=== PATIENT | female | born 1975 | race Caucasian/White ===

== ENCOUNTER → 2016-09-16 | Outpatient (CLI) | payer BC ==
--- NOTE | 2016-09-16 16:28 | DIAGNOSTIC IMAGING REPORT ---
C-SPINE ROUTINE 4 OR 5 VIEWS CLINICAL HISTORY: Bilateral arm numbness. COMPARISON STUDY: No previous studies for comparison. FINDINGS: There is slight reversal of the normal cervical lordosis. Vertebral body heights are maintained. The inferior endplate of C7 is slightly obscured. There is no fracture or suspicious lesion. Disc spaces are preserved. There is minimal endplate osteophytosis. Facet joints are intact. IMPRESSION: 1. Minimal degenerative changes of the cervical spine. 2. No fracture or suspicious lesion. Electronically signed by: Hussain Garcia M.D. 09/16/2016 4:27 PM Dictated Date/Time: 09/16/2016 4:11 PM
== END | disposition home or self-care (01) ==
LOC: C.RAD 15:53
PROVIDERS: ATTEND Family Medicine
DX: R20.0 Anesthesia of skin (principal)

== ENCOUNTER 2017-06-12 07:09 | Inpatient (IN) | payer BC ==
[~2017-06-12] VITALS: Ht 167.6 cm; Wt 73.2 kg
[2017-06-12] MEDS ORDERED: ONDANSETRON INJ 2 MG/ML 2 ML VIAL IV STA ×2 (07:33→11:11)
[2017-06-12] MEDS ORDERED: MoRPHine SULFATE 4 MG/ML 1 ML CARP\\VIAL IV STA (07:33)
[2017-06-12] MEDS ORDERED: SODIUM CHLORIDE 0.9% 1000ML 1,000 ML IV STA (07:33)
[2017-06-12 08:03] LABS: BASO % 0.2 %; BASO ABS # 0.02 K/uL (0-0.2); COMPLETE YES; EOS % 0.4 %; HEMATOCRIT 33.8 % (37-47); IG% 0.3 %; LYMPH % 12.2 %; LYMPH ABS # 1.35 K/uL (1.2-3.4); MEAN CELL VOLUME 80.3 fL (80-100); MEAN CORPUSCULAR HEMOGLOBIN 26.4 pg (25-34); MEAN CORPUSCULAR HGB CONC 32.8 g/dl (32-36); MEAN PLATELET VOLUME 9.9 fL (7.4-10.4); MONO % 4.5 %; NEUT % 82.4 %; PLATELET COUNT 286 K/uL (130-400); RED BLOOD COUNT 4.21 M/uL (4.2-5.4); WHITE BLOOD COUNT 11.05 K/uL (4.8-10.8)
[2017-06-12 08:29] LABS: ALB/GLOB RATIO 1.2 (0.9-2); BUN/CREATININE RATIO 15.9 (10-20); CALCIUM 8.9 mg/dl (8.5-10.1); CREATININE 0.67 mg/dl (0.60-1.20); POTASSIUM 3.7 mmol/L (3.5-5.1)
[2017-06-12] MEDS ORDERED: HYDROmorphone INJ 0.5 MG/0.5 ML SYR IV STA (08:40)
--- NOTE | 2017-06-12 08:44 | DIAGNOSTIC IMAGING REPORT ---
ULTRASOUND KIDNEYS AND BLADDER CLINICAL HISTORY: Left ureteral stone. COMPARISON STUDY: No priors. TECHNIQUE: Real-time, grayscale, and color flow sonography of the kidneys and bladder is performed. Images are reviewed in the transverse and longitudinal planes. FINDINGS: Kidneys: The kidneys are normal in size and echotexture. The right kidney measures 12.9 cm in length and the left kidney measures 14.2 cm in length. There is moderate left hydroureteronephrosis. No hydronephrosis is seen on the right. An obstructing calculus is seen at the left vesicoureteral junction and measures 7 mm. No additional shadowing renal calculi are identified. There is no sonographic evidence of contour deforming renal mass lesion. There is trace left-sided perinephric fluid. Bladder: The bladder is partially decompressed and grossly normal in appearance. Ureteral jets were not seen. IMPRESSION: 1. There is a 7 mm obstructing calculus at the left vesicoureteral junction. This causes moderate left hydroureteronephrosis. 2. There is no right-sided hydronephrosis. Electronically signed by: Jay Ordonez M.D. 06/12/2017 8:43 AM Dictated Date/Time: 06/12/2017 8:41 AM
[2017-06-12 09:08] LABS: URINE APPEARANCE CLOUDY (CLEAR); URINE BILIRUBIN NEG (NEG); URINE COLOR YELLOW; URINE NITRITE NEG (NEG); UROBILINOGEN NEG (NEG)
[2017-06-12 09:09] LABS: MANUAL MICROSCOPIC REQUIRED? NO; REVIEW REQ? NO
[2017-06-12] MEDS ORDERED: ONDA4TAB46 PO (09:18)
[2017-06-12] MEDS ORDERED: HYDR-5688 PO (09:18)
[2017-06-12] MEDS ORDERED: TAMS0.4C38 PO (09:18)
[2017-06-12] MEDS ORDERED: HYDROmorphone INJ 0.5 MG/0.5 ML SYR IV PRN ×2 (10:45→11:45)
[2017-06-12] MEDS ORDERED: NIFEdipine 30 MG CR TAB PO STA (11:36)
[2017-06-12] MEDS ORDERED: ONDANSETRON INJ 2 MG/ML 2 ML VIAL IV PRN (11:45)
[2017-06-12 12:16] VITALS: BP 162/102; PULSE 70; TEMP 36.8; O2SAT 97; Ht 167.6 cm; Wt 73.2 kg
--- NOTE | 2017-06-12 12:29 | History and Physical ---
History & Physical Date & Time of Service: Jun 12, 2017 at 12:29 Chief Complaint: Kidney Stone Primary Care Physician: Suzette Townsend D.O. History of Present Illness 41 yo female who comes into the hospital for left sided flank pain over the past week. Was recently seen at [facility] and was found to have a kidney stone in the ureter. Patient was given flomax HS and pain medicine and was sent home. She returns today because she was again awoken at 300 with severe left sided flank pain, accompanied by nausea. Patient denies any fever and chills. This is first episode of kidney stones Family History FH: cancer FH: diabetes mellitus FH: gallbladder disease FH: heart disease FH: hypertension FH: kidney disease strong family history of kidney stones. Social History Smoking Status: Never Smoker Immunizations History of Influenza Vaccine: N/A History of Tetanus Vaccine?: Yes Tetanus Immunization Date: Nov 13, 2008 History of Pneumococcal: No History of Hepatitis B Vaccine: No Multi-Drug Resistant Organisms History of MDRO: No Allergies Coded Allergies: No Known Allergies (Verified , ?, 06/12/17) Home Medications Scheduled Tamsulosin Hcl (Flomax), 0.4 MG PO HS Scheduled PRN Hydrocodone/Acetaminophen 5MG/325MG ([place] 5MG/325MG), 1 TABLET PO Q4 PRN for Pain Ondansetron Hcl (Zofran), 4 MG PO Q4 PRN for Nausea Review of Systems Constitutional: No fever, No chills Respiratory: No cough, No sputum Cardiovascular: No chest pain, No orthopnea Abdomen: No pain, No nausea Neurologic: No memory loss, No paralysis Endocrine: No fatigue, No excessive thirst Integumentary: No rash, No itch Allergic / Immunologic: No environmental allergies Physical Exam Vital Signs Date Time Temp Pulse Resp B/P (MAP) Pulse Ox O2 Delivery O2 Flow Rate FiO2 06/12/17 11:24 90 20 160/88 98 Room Air 06/12/17 08:47 87 20 161/97 99 Room Air 06/12/17 08:09 98 Room Air 06/12/17 08:04 78 20 144/85 98 Room Air 06/12/17 07:12 36.6 84 18 159/91 99 Room Air General Appearance: WD/WN, no apparent distress Neck: supple, no adenopathy Respiratory/Chest: chest non-tender, lungs clear, normal breath sounds Cardiovascular: regular rate, rhythm, no edema Abdomen/GI: normal bowel sounds, non tender, soft Back: normal inspection, + left CVA tenderness 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 Skin: normal color Lymphatic: no adenopathy Diagnostics Laboratory Results Results Past 24 Hours Test 06/12/17 07:48 06/12/17 08:42 Range/Units White Blood Count 11.05 4.8-10.8 K/uL Red Blood Count 4.21 4.2-5.4 M/uL Hemoglobin 11.1 12.0-16.0 g/dL Hematocrit 33.8 37-47 % Mean Corpuscular Volume 80.3 80-100 fL Mean Corpuscular Hemoglobin 26.4 25-34 pg Mean Corpuscular Hemoglobin Concent 32.8 32-36 g/dl Platelet Count 286 130-400 K/uL Mean Platelet Volume 9.9 7.4-10.4 fL Neutrophils (%) (Auto) 82.4 % Lymphocytes (%) (Auto) 12.2 % Monocytes (%) (Auto) 4.5 % Eosinophils (%) (Auto) 0.4 % Basophils (%) (Auto) 0.2 % Neutrophils # (Auto) 9.11 1.4-6.5 K/uL Lymphocytes # (Auto) 1.35 1.2-3.4 K/uL Monocytes # (Auto) 0.50 0.11-0.59 K/uL Eosinophils # (Auto) 0.04 0-0.5 K/uL Basophils # (Auto) 0.02 0-0.2 K/uL RDW Standard Deviation 39.5 36.4-46.3 fL RDW Coefficient of Variation 13.5 11.5-14.5 % Immature Granulocyte % (Auto) 0.3 % Immature Granulocyte # (Auto) 0.03 0.00-0.02 K/uL Sodium Level 137 136-145 mmol/L Potassium Level 3.7 3.5-5.1 mmol/L Chloride Level 104 98-107 mmol/L Carbon Dioxide Level 24 21-32 mmol/L Anion Gap 9.0 3-11 mmol/L Blood Urea Nitrogen 11 7-18 mg/dl Creatinine 0.67 0.60-1.20 mg/dl Est Creatinine Clear Calc Drug Dose 110.8 ml/min Estimated GFR () 124.8 Estimated GFR (Non- 107.7 BUN/Creatinine Ratio 15.9 10-20 Random Glucose 108 70-99 mg/dl Calcium Level 8.9 8.5-10.1 mg/dl Total Bilirubin 0.4 0.2-1 mg/dl Aspartate Amino Transf (AST/SGOT) 19 15-37 U/L Alanine Aminotransferase (ALT/SGPT) 19 12-78 U/L Alkaline Phosphatase 76 45-117 U/L Total Protein 7.6 6.4-8.2 gm/dl Albumin 4.2 3.4-5.0 gm/dl Globulin 3.4 2.5-4.0 gm/dl Albumin/Globulin Ratio 1.2 0.9-2 Lipase 127 73-393 U/L Chemistry Specimen Hemolysis Urine Color YELLOW Urine Appearance CLOUDY CLEAR Urine pH 7.0 4.5-7.5 Urine Specific [place] 1.020 1.000-1.030 Urine Protein NEG NEG Urine Glucose (UA) NEG NEG Urine Ketones 1+ NEG Urine Occult Blood NEG NEG Urine Nitrite NEG NEG Urine Bilirubin NEG NEG Urine Urobilinogen NEG NEG Urine Leukocyte Esterase NEG NEG Urine WBC (Auto) 0 0-5 /hpf Urine RBC (Auto) 0-4 0-4 /hpf Urine Hyaline Casts (Auto) 1-5 0-5 /lpf Urine Epithelial Cells (Auto) 10-20 0-5 /lpf Urine Bacteria (Auto) NEG NEG Diagnostic Radiology ULTRASOUND KIDNEYS AND BLADDER CLINICAL HISTORY: Left ureteral stone. COMPARISON STUDY: No priors. TECHNIQUE: Real-time, grayscale, and color flow sonography of the kidneys and bladder is performed. Images are reviewed in the transverse and longitudinal planes. FINDINGS: Kidneys: The kidneys are normal in size and echotexture. The right kidney measures 12.9 cm in length and the left kidney measures 14.2 cm in length. There is moderate left hydroureteronephrosis. No hydronephrosis is seen on the right. An obstructing calculus is seen at the left vesicoureteral junction and measures 7 mm. No additional shadowing renal calculi are identified. There is no sonographic evidence of contour deforming renal mass lesion. There is trace left-sided perinephric fluid. Bladder: The bladder is partially decompressed and grossly normal in appearance. Ureteral jets were not seen. IMPRESSION: 1. There is a 7 mm obstructing calculus at the left vesicoureteral junction. This causes moderate left hydroureteronephrosis. 2. There is no right-sided hydronephrosis. Electronically signed by: Jay Ordonez M.D. 06/12/2017 8:43 AM Dictated Date/Time: 06/12/2017 8:41 AM Impression Assessment and Plan Left sided ureterovesical 7mm obstructing stone with hydronephrosis of left kidney Admit to surg Discussed with patient that will add nifedipine to her regimen to help dilate ureter. Will place patient NPO as patient will likely require a stent Hoping for stent placement today for a quick turnaround and discharge. This is dependent on time Urology sees patient will continue with dilaudid for pain control. Level of Care Med/Surg Advanced Directives Existing Advance Directive: No Existing Living Will: No Existing Power of [employer] Administrator: No Existing Health Care Proxy: No Resuscitation Status FULL RESUSCITATION VTE Prophylaxis VTE Risk Assessment Done? Y/N: Yes Risk Level: Low Given or contraindicated: Shyann Moore, SCD's Social Service Consult Lives in Personal Care
[2017-06-12 12:32] VITALS: BP 162/102; PULSE 70; TEMP 36.8; O2SAT 97
[2017-06-12] MEDS: SODIUM CHLORIDE 0.9% 1000ML 1,000 ML IV SCH ×2 (12:36→18:27)
[2017-06-12] MEDS ORDERED: HYDROmorphone INJ 1 MG/ML SYR ONE (13:25)
[2017-06-12] MEDS ORDERED: NURSING VERBAL MED ORDER ONE (13:30)
[2017-06-12] MEDS ORDERED: HYDROmorphone INJ 1 MG/ML SYR IV PRN (13:45)
[2017-06-12 13:50] VITALS: BP 130/81; PULSE 70
[2017-06-12 15:20] VITALS: BP 153/90; PULSE 67; TEMP 36.7; O2SAT 97
--- NOTE | 2017-06-12 17:05 | EMERGENCY ROOM VISIT NOTE ---
History First contact with patient: 07:15 Chief Complaint: KIDNEY STONE Stated Complaint: KIDNEY STONE History of Present Illness The patient is a 41 year old female who presents to the Emergency Room with complaints of recurrent left flank/lower back pain after developing renal colic secondary to a kidney stone 6 days ago. The patient was seen at [facility] where a CT scan confirmed a stone. She was provided prescriptions for Flomax, [place] and Zofran. The patient reports that most of the pain stopped within 18- 24 hours, and has had no further discomfort until 3 AM this morning. The patient took her Flomax at 11 PM last night, [place] at 3 AM and Zofran at 5:30 AM. She currently denies any significant nausea, and rates her discomfort a 5 out of 10. The patient denies any prior history of kidney stones. She has otherwise been urinating fine this past week. She denies fevers or chills. Review of Systems HEENT: Denies dizziness, visual problems, hearing loss, tinnitus. Denies difficulty swallowing or oral lesions. PULMONARY: Denies cough, shortness of breath, sputum production or hemoptysis. CARDIOVASCULAR: Denies chest pain, palpitations, dyspnea on exertion, orthopnea or peripheral edema. GASTROINTESTINAL: Denies diarrhea, constipation or nausea, otherwise see history of present illness. GENITOURINARY: Denies dysuria, frequency, urgency or nocturia. Otherwise see history of present illness. NEUROLOGIC: Denies history of epilepsy, CVA, TIA or chronic headaches. MUSCULOSKELETAL: Denies history of joint tenderness/swelling. SKIN: Denies rashes or lesions. PSYCHIATRIC: Denies history of depression or mental illness. ENDOCRINE: Denies history of diabetes or thyroid disorders. Past Medical/Surgical History Medical Problems: (1) Hydronephrosis of left kidney (2) Hypertension, essential (3) Left ureteral stone Surgical Problems: (1) History of delivery (2) History of cholecystectomy Family History FH: cancer FH: diabetes mellitus FH: gallbladder disease FH: heart disease FH: hypertension FH: kidney disease Social History Smoking Status: Never Smoker Alcohol Use: none Marital Status: Housing Status: lives with family Occupation Status: employed Current/Historical Medications Scheduled Tamsulosin Hcl (Flomax), 0.4 MG PO HS Scheduled PRN Hydrocodone/Acetaminophen 5MG/325MG ([place] 5MG/325MG), 1 TABLET PO Q4 PRN for Pain Ondansetron Hcl (Zofran), 4 MG PO Q4 PRN for Nausea Physical Exam Vital Signs Date Time Temp Pulse Resp B/P (MAP) Pulse Ox O2 Delivery O2 Flow Rate FiO2 06/12/17 11:24 90 20 160/88 98 Room Air 06/12/17 08:47 87 20 161/97 99 Room Air 06/12/17 08:09 98 Room Air 06/12/17 08:04 78 20 144/85 98 Room Air 06/12/17 07:12 36.6 84 18 159/91 99 Room Air Physical Exam CONSTITUTIONAL: Healthy and well nourished. Alert and oriented X 3 with positive affect. Patient does not appear in any acute distress. HEENT: Normocephalic, atraumatic. Pupils equal, round and reactive. NECK: Full active range of motion without discomfort. RESPIRATORY: Clear to auscultation bilaterally with no wheezing, crackles, rhonchi or stridor. CARDIOVASCULAR: Regular rate and rhythm with no murmurs, rubs or gallops. GASTROINTESTINAL: Bowel sounds present in all quadrants. Abdomen is soft and nontender to palpation. Negative CVA tenderness. MUSCULOSKELETAL: Full range of motion of all joints without discomfort. INTEGUMENTARY: No rash or other significant dermatologic conditions noted. HEMATOLOGIC: No ecchymosis or petechiae noted. NEUROLOGIC: No focal neurologic deficits noted. Medical Decision & Procedures ER Provider Diagnostic Interpretation: Retroperitoneal ultrasound shows a following: ULTRASOUND KIDNEYS AND BLADDER CLINICAL HISTORY: Left ureteral stone. COMPARISON STUDY: No priors. TECHNIQUE: Real-time, grayscale, and color flow sonography of the kidneys and bladder is performed. Images are reviewed in the transverse and longitudinal planes. FINDINGS: Kidneys: The kidneys are normal in size and echotexture. The right kidney measures 12.9 cm in length and the left kidney measures 14.2 cm in length. There is moderate left hydroureteronephrosis. No hydronephrosis is seen on the right. An obstructing calculus is seen at the left vesicoureteral junction and measures 7 mm. No additional shadowing renal calculi are identified. There is no sonographic evidence of contour deforming renal mass lesion. There is trace left-sided perinephric fluid. Bladder: The bladder is partially decompressed and grossly normal in appearance. Ureteral jets were not seen. IMPRESSION: 1. There is a 7 mm obstructing calculus at the left vesicoureteral junction. This causes moderate left hydroureteronephrosis. 2. There is no right-sided hydronephrosis. Laboratory Results 06/12/17 07:48 Red Blood Count 4.21, Mean Corpuscular Volume 80.3, Mean Corpuscular Hemoglobin 26.4, Mean Corpuscular Hemoglobin Concent 32.8, Mean Platelet Volume 9.9, Neutrophils (%) (Auto) 82.4, Lymphocytes (%) (Auto) 12.2, Monocytes (%) (Auto) 4.5, Eosinophils (%) (Auto) 0.4, Basophils (%) (Auto) 0.2, Neutrophils # (Auto) 9.11, Lymphocytes # (Auto) 1.35, Monocytes # (Auto) 0.50, Eosinophils # (Auto) 0.04, Basophils # (Auto) 0.02 06/12/17 07:48 Test 06/12/17 07:48 06/12/17 08:42 White Blood Count 11.05 K/uL (4.8-10.8) Red Blood Count 4.21 M/uL (4.2-5.4) Hemoglobin 11.1 g/dL (12.0-16.0) Hematocrit 33.8 % (37-47) Mean Corpuscular Volume 80.3 fL (80-100) Mean Corpuscular Hemoglobin 26.4 pg (25-34) Mean Corpuscular Hemoglobin Concent 32.8 g/dl (32-36) Platelet Count 286 K/uL (130-400) Mean Platelet Volume 9.9 fL (7.4-10.4) Neutrophils (%) (Auto) 82.4 % Lymphocytes (%) (Auto) 12.2 % Monocytes (%) (Auto) 4.5 % Eosinophils (%) (Auto) 0.4 % Basophils (%) (Auto) 0.2 % Neutrophils # (Auto) 9.11 K/uL (1.4-6.5) Lymphocytes # (Auto) 1.35 K/uL (1.2-3.4) Monocytes # (Auto) 0.50 K/uL (0.11-0.59) Eosinophils # (Auto) 0.04 K/uL (0-0.5) Basophils # (Auto) 0.02 K/uL (0-0.2) RDW Standard Deviation 39.5 fL (36.4-46.3) RDW Coefficient of Variation 13.5 % (11.5-14.5) Immature Granulocyte % (Auto) 0.3 % Immature Granulocyte # (Auto) 0.03 K/uL (0.00-0.02) Anion Gap 9.0 mmol/L (3-11) Est Creatinine Clear Calc Drug Dose 110.8 ml/min Estimated GFR () 124.8 Estimated GFR (Non- 107.7 BUN/Creatinine Ratio 15.9 (10-20) Calcium Level 8.9 mg/dl (8.5-10.1) Total Bilirubin 0.4 mg/dl (0.2-1) Aspartate Amino Transf (AST/SGOT) 19 U/L (15-37) Alanine Aminotransferase (ALT/SGPT) 19 U/L (12-78) Alkaline Phosphatase 76 U/L (45-117) Total Protein 7.6 gm/dl (6.4-8.2) Albumin 4.2 gm/dl (3.4-5.0) Globulin 3.4 gm/dl (2.5-4.0) Albumin/Globulin Ratio 1.2 (0.9-2) Lipase 127 U/L (73-393) Chemistry Specimen Hemolysis Urine Color YELLOW Urine Appearance CLOUDY (CLEAR) Urine pH 7.0 (4.5-7.5) Urine Specific [place] 1.020 (1.000-1.030) Urine Protein NEG (NEG) Urine Glucose (UA) NEG (NEG) Urine Ketones 1+ (NEG) Urine Occult Blood NEG (NEG) Urine Nitrite NEG (NEG) Urine Bilirubin NEG (NEG) Urine Urobilinogen NEG (NEG) Urine Leukocyte Esterase NEG (NEG) Urine WBC (Auto) 0 /hpf (0-5) Urine RBC (Auto) 0-4 /hpf (0-4) Urine Hyaline Casts (Auto) 1-5 /lpf (0-5) Urine Epithelial Cells (Auto) 10-20 /lpf (0-5) Urine Bacteria (Auto) NEG (NEG) The above labs were reviewed. The patient does have a moderate leukocytosis with left shift and bandemia. Hemoglobin is 11.1. Electrolytes and renal function are otherwise normal. Urinalysis does not show any evidence of infection. Medications Administered Medications (Trade) Dose Ordered Sig/[place] Route Start Time Stop Time Status Last Admin Dose Admin Sodium Chloride 1,000 ml @ 999 mls/hr Q1H1M STAT IV 06/12/17 07:33 06/12/17 08:33 DC 06/12/17 08:06 999 MLS/HR Morphine Sulfate (MoRPHine SULFATE INJ) 4 mg NOW STAT IV 06/12/17 07:33 06/12/17 07:36 DC 06/12/17 08:06 4 MG Ondansetron HCl (Zofran Inj) 4 mg NOW STAT IV 06/12/17 07:33 06/12/17 07:36 DC 06/12/17 08:06 4 MG Hydromorphone HCl (Dilaudid Inj) 0.5 mg NOW STAT IV 06/12/17 08:40 06/12/17 08:42 DC 06/12/17 08:48 0.5 MG Hydromorphone HCl (Dilaudid Inj) 0.5 mg Q1H PRN IV 06/12/17 10:45 06/12/17 12:32 DC 06/12/17 11:27 0.5 MG Ondansetron HCl (Zofran Inj) 4 mg NOW STAT IV 06/12/17 11:11 06/12/17 11:12 DC 06/12/17 11:25 4 MG Procedure 1. IV hydration: The patient was administered a normal saline 1 L bolus 2. IV medications: The patient was initially administered morphine 4 mg and Zofran 4 mg IVP. She required 2 additional and separate doses of Dilaudid 0.5 mg IVP, and additional dose of Zofran 4 mg IVP for persistent pain and nausea. ED Course Patient history and physical exam were performed. Nurse's notes were reviewed. I also reviewed documentation the patient brought with her from her last ED evaluation for her stone. Her CT scan showed a mild to moderate left sided hydroureteronephrosis secondary to a 5 x 3 mm stone of the left UVJ. A 2.5 cm ovoid shaped low density structure is also seen within the region of the left adnexa, felt to represent an ovarian cyst. Her urinalysis did not show any signs of infection. Potassium was 3.2 with a hemoglobin of 10.7, otherwise remaining labs, including LFTs were normal. Vital signs were reviewed, showing an elevated blood pressure of 159/91. The patient is afebrile. IV access was established, and labs were drawn. The patient was hydrated with normal saline, and received IV medications as discussed in the previous Procedure section. Review of labs shows a mild leukocytosis with left shift and bandemia. Renal function is normal, as well as urinalysis. Retroperitoneal ultrasound shows a persistent left UVJ stone measured at 7 mm. A moderate hydroureteronephrosis is also noted. The case was further discussed with Dr. Ash, ED attending physician, who suggested urology referral. I discussed the case with Dr. Kay who reported that he may not be able to perform surgical intervention until later this afternoon. He agrees that surgery is indicated, and requested that the hospitalist service managed the patient until surgical intervention can be planned. The case was discussed further with [facility]. Please see their dictation for further treatment and final disposition. The patient will be placed in nothing by mouth status. She has not had anything to eat or drink this morning. Medical Decision Patient presents with a left UVJ stone measuring 7 mm, and not having passed within the past 6 days. The patient does not have any laboratory evidence for acute kidney injury or failure. She does have a mild leukocytosis, but urinalysis findings that are not consistent with infection. I do not any additional intra-abdominal etiology such as diverticulitis, bowel obstruction, volvulus, peritonitis, appendicitis, pneumonia, ischemic colitis, mesenteric adenitis or ischemic gut. [place] Drug Monitoring Program Search Results: patient reviewed within database, no issues identified Medication Reconcilliation Current Medication List: was personally reviewed by ak Blood Pressure Screening Patient's blood pressure: Normal blood pressure Impression Primary Impression: Left ureteral stone Additional Impression: Hydronephrosis of left kidney Departure Information Referrals Suzette Townsend D.O. (PCP) Patient Instructions My [facility] Problem Qualifiers
--- NOTE | 2017-06-12 18:09 | Urology Consultation ---
History General Date of Service: Jun 12, 2017. Primary Care Physician: Suzette Townsend D.O. Pt seen a urologist before?: No History of Present Illness 41 year old female who presents to the Emergency Room with complaints of recurrent left flank/lower back pain after developing renal colic secondary to a kidney stone last week. The patient was seen at [facility] where a CT scan confirmed a stone. She was sent home with trial of passage. The patient reports that most of the pain stopped within 18-24 hours, and has had no further discomfort until 3 AM this morning. She currently denies any significant nausea, and rates her discomfort a 5 out of 10. She does not feel like she has passed the stone yet. She has not had a kidney stone prior to this. She normally voids w/o complaint. Min urge and freq. No hem. No dys. No nausea or vomitting today. She does have a strong family hx of stones. Imaging Imaging: Ultrasound Laboratory Labs were reviewed and are within normal limits unless listed below. Labs are available in the chart and at [facility] Past History no pertinent history Past Surgical History: no surgical history Family History FH: cancer FH: diabetes mellitus FH: gallbladder disease FH: heart disease FH: hypertension FH: kidney disease Social History Hx Tobacco Use In Past Year?: No Marital status: Occupation status: employed Immunizations History of Influenza Vaccine: N/A History of Tetanus Vaccine?: Yes Tetanus Immunization Date: Nov 13, 2008 History of Pneumococcal: No History of Hepatitis B Vaccine: No History of MDRO No Allergies Coded Allergies: No Known Allergies (Verified , ?, 06/12/17) Medications Home Medications: Home Meds and Scripts Medications Dose Route/Sig Max Daily Dose Days Date Category Dose Instructions Zofran (Ondansetron HCl) 4 Mg Tab 4 Mg PO Q4 PRN 06/12/17 Reported [place] 5MG/325MG (Acetaminophen/Hydrocodone Bitart) Tab 1 Tablet PO Q4 PRN 06/12/17 Reported PRN PAIN Flomax (Tamsulosin Hcl) 0.4 Mg Cap 0.4 Mg PO HS 06/12/17 Reported Inpatient Medications: Current Inpatient Medications Medications (Trade) Dose Ordered Sig/[place] Route Start Time Stop Time Status Last Admin Dose Admin Ondansetron HCl (Zofran Inj) 4 mg Q4H PRN IV 06/12/17 11:45 07/12/17 11:44 06/12/17 15:29 4 MG Sodium Chloride 1,000 ml @ 150 mls/hr Q6H40M IV 06/12/17 11:45 07/12/17 11:44 06/12/17 12:36 150 MLS/HR Tamsulosin HCl (Flomax Cap) 0.4 mg HS PO 06/12/17 21:00 07/12/17 20:59 Hydromorphone HCl (Dilaudid Inj) 1 mg Q4H PRN IV 06/12/17 13:45 06/26/17 13:44 Review of Systems Review of Systems Constitutional: + see HPI, No fever, No chills Eyes: + see HPI, No blurred vision Neurological: No dizzy Endocrine: No excessive thirst Gastrointestinal: + abdominal pain Cardiovascular: No heart murmur Respiratory: No shortness of breath Skin: No rash Musculoskeletal: No joint pain Blood / Lymphatic: No bleed easily Ears / Nose / Throat: No hearing loss Psychologic / Mental: No nervous Female : + kidney stones All Other Systems: Reviewed and Negative Physical Exam Vital Signs: Vital Signs Past 12 Hours Date Time Temp Pulse Resp B/P (MAP) Pulse Ox O2 Delivery O2 Flow Rate FiO2 06/12/17 15:30 Room Air 06/12/17 15:20 36.7 67 16 153/90 (111) 97 Room Air 06/12/17 13:50 70 18 130/81 (97) 06/12/17 13:21 Room Air 06/12/17 12:32 36.8 70 16 162/102 (122) 97 Room Air 06/12/17 12:16 36.8 70 16 162/102 97 Room Air 06/12/17 11:24 90 20 160/88 98 Room Air 06/12/17 08:47 87 20 161/97 99 Room Air 06/12/17 08:09 98 Room Air 06/12/17 08:04 78 20 144/85 98 Room Air 06/12/17 07:12 36.6 84 18 159/91 99 Room Air Physical Exam: General Appearance: WD/WN, no apparent distress ENT: normal ENT inspection, hearing grossly normal Neck: supple, no adenopathy Respiratory/Chest: chest non-tender, lungs clear Cardiovascular: regular rate, rhythm, no edema Extremities: normal range of motion 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 7mm in size. Hydronephrosis. Pt has bounced back to ER and is frustrated. She is not interested in continuing to try to pass the stone. Will plan to take to OR for cystoscopy, Usocpe, Laser Litho, and Stent. Reviewed procedure and risks. Will plan to remove stone and leave stent with long strings for patient to remove herself in 5 days.
[2017-06-12] MEDS ORDERED: TAMSULOSIN HCL 0.4 MG CAP PO SCH (21:00)
[2017-06-12 23:07] VITALS: BP 132/86; PULSE 68; TEMP 36.7; O2SAT 99
[2017-06-13] VITALS (7 sets, daily range): BP systolic 120–133; BP diastolic 73–80; PULSE 76–82; TEMP 36.4–36.7; O2SAT 94–98
[2017-06-13] MEDS: SODIUM CHLORIDE 0.9% 1000ML 1,000 ML IV SCH ×3 (01:00→14:24)
[2017-06-13 07:28] LABS: BASO % 0.2 %; BASO ABS # 0.01 K/uL (0-0.2); COMPLETE YES; EOS % 1.8 %; HEMATOCRIT 30.1 % (37-47); IG% 0.2 %; LYMPH % 31.7 %; LYMPH ABS # 1.92 K/uL (1.2-3.4); MEAN CELL VOLUME 80.7 fL (80-100); MEAN CORPUSCULAR HEMOGLOBIN 25.2 pg (25-34); MEAN CORPUSCULAR HGB CONC 31.2 g/dl (32-36); MEAN PLATELET VOLUME 9.2 fL (7.4-10.4); MONO % 10.9 %; NEUT % 55.2 %; PLATELET COUNT 258 K/uL (130-400); RED BLOOD COUNT 3.73 M/uL (4.2-5.4); WHITE BLOOD COUNT 6.05 K/uL (4.8-10.8)
[2017-06-13] MEDS ORDERED: CONRAY 30% 150ML BOTTLE ONE (07:41)
[2017-06-13] MEDS ORDERED: ONDANSETRON INJ 2 MG/ML 2 ML VIAL IV PRN (07:45)
[2017-06-13] MEDS ORDERED: EpHEDrine SULFATE INJ 50 MG/ML AMP IV PRN (07:45)
[2017-06-13] MEDS ORDERED: ATROPINE SULFATE 0.1 MG/ML 5ML SYR IV PRN (07:45)
[2017-06-13] MEDS ORDERED: FENTANYL CITRATE INJ 50 MCG/1 ML 2 ML VIAL IV PRN (07:45)
[2017-06-13] MEDS ORDERED: DEXAMETHASONE SOD INJ 4 MG/ML VIAL ONE (07:51)
[2017-06-13] MEDS ORDERED: PROPOFOL IV EMULSION 10 MG/ML 20 ML VIAL IV ONE (07:51)
[2017-06-13] MEDS ORDERED: MIDAZOLAM HCL 1 MG/ML 2ML VIAL ONE (07:51)
[2017-06-13] MEDS ORDERED: ONDANSETRON INJ 2 MG/ML 2 ML VIAL ONE (07:51)
[2017-06-13] MEDS ORDERED: FENTANYL CITRATE INJ 50 MCG/1 ML 2 ML VIAL ONE (07:51)
[2017-06-13] MEDS ORDERED: LIDOCAINE HCL 2% 2 ML VIAL (20MG/ML) ONE (07:51)
[2017-06-13 07:53] LABS: BUN/CREATININE RATIO 12.8 (10-20); CALCIUM 8.1 mg/dl (8.5-10.1); CREATININE 0.6 mg/dl (0.60-1.20); POTASSIUM 3.5 mmol/L (3.5-5.1)
[2017-06-13 08:00] LABS: PREG INTERNAL NEGATIVE QC NEG CLEAR BACKGROUND; PREG INTERNAL POSITIVE QC POS CONTROL LINE
[2017-06-13] MEDS ORDERED: CIPROFLOXACIN 400MG / 200ML D5W ONE (08:38)
--- NOTE | 2017-06-13 08:38 | History & Physical Bridge Note ---
H&P Re-Evaluation Bridge Note: I have examined the patient, reviewed the History & Physical and in the interval since the performance of the History & Physical I have noted the following changes of clinical significance: No changes noted
[2017-06-13] MEDS ORDERED: SODIUM CHLORIDE 0.9% INJ 10 ML VIAL ONE (09:05)
[2017-06-13] MEDS ORDERED: EpHEDrine SULFATE INJ 50 MG/ML AMP ONE (09:05)
[2017-06-13] MEDS ORDERED: PHENYLEPHRINE HCL INJ 10 MG/ML VIAL ONE (09:05)
--- NOTE | 2017-06-13 09:22 | OPERATIVE REPORT ---
DATE OF OPERATION: 06/13/2017 SURGEON: Morro Kay MD. PREOPERATIVE DIAGNOSIS: Left ureteral calculus. POSTOPERATIVE DIAGNOSIS: Same. PROCEDURES: Cystoscopy, left retrograde pyelogram, left ureteroscopy, basket extraction of stone, left ureteral stent placement. ANESTHESIA: General endotracheal. COMPLICATIONS: None. SPECIMENS: Ureteral stone. DRAINS: A 6 Frisian x 26 cm ureteral stent with long strings. ESTIMATED BLOOD LOSS: Minimal. FINDINGS: 5 mm jagged ureteral stone in left ureter. INDICATIONS: Ms. Wilson is a 41-year-old female who presented last week with left-sided flank pain. This persisted and she now presents for definitive treatment of the stone. DESCRIPTION OF PROCEDURE: The patient brought to the operative suite, positively identified, placed on the table in the supine position. After induction of general anesthesia, placed in dorsal lithotomy position. The genitalia prepped and draped in a sterile fashion. Preoperative antibiotics were administered and time out was performed. A rigid cystoscope was passed through the urethra into the bladder. The urethra was normal. The bladder was unremarkable. Attention was turned to the left ureteral orifice. This was intubated with an open ended catheter and retrograde pyelogram was performed. This showed a filling defect in the distal ureter consistent with the stone seen on the previous imaging studies. Sensor wire was passed up to level of the renal pelvis and a second wire was passed alongside this wire and the rigid ureteroscope was passed up the left ureter. The stone was encountered in the distal ureter. It was approximately 5 mm and jagged in appearance and triangular in shape. I suspected that it would be able to come out with simple basket extraction. An NGage basket was used to entrap the stone and remove it completely without difficulty. The stone was sent for analysis. A final retrograde pyelogram did not show any other abnormalities. A 6-Frisian x 26 cm ureteral stent was then placed with a good curl seen proximally and distally. The bladder was then drained. The strings were taped to the lower abdomen for the patient to remove herself in approximately 5 days. The patient tolerated the procedure well. Sponge and needle count was correct. Taken to PACU in stable condition. I attest to the content of the Intraoperative Record and any orders documented therein. Any exception s are noted below.
--- NOTE | 2017-06-13 09:33 | DIAGNOSTIC IMAGING REPORT ---
RETROGRADE INCLUDES KUB CLINICAL HISTORY: 41 years-old Female presenting with CYSTO. TECHNIQUE: 3 fluoroscopic spot image(s) obtained as part of an intraoperative procedure. COMPARISON: Renal ultrasound performed the previous day. FINDINGS/IMPRESSION: A guidewire has been passed into the left renal collecting system. Contrast opacifies the mid to distal left ureter. A left ureteral double-J stent was placed. Please see surgical report for further details. Fluoroscopy dosage (mGy): Not available. Fluoroscopy time: 8 seconds. Number of fluoroscopic spot images: 3. Electronically signed by: Gilberto De Los Santos M.D. 06/13/2017 9:31 AM Dictated Date/Time: 06/13/2017 9:30 AM
--- NOTE | 2017-06-13 10:20 | Anesthesiology Progress Note ---
Anesthesia Post Op Note Date & Time Jun 13, 2017 at 10:20 Vital Signs Pain Intensity: 0 Vital Signs Past 12 Hours Date Time Temp Pulse Resp B/P (MAP) Pulse Ox O2 Delivery O2 Flow Rate FiO2 06/13/17 10:10 36.3 71 16 120/78 95 Room Air 06/13/17 09:50 84 16 136/79 96 Room Air 06/13/17 09:40 85 17 132/78 99 Nasal Cannula 5 06/13/17 09:30 83 16 125/72 99 Nasal Cannula 5 06/13/17 09:22 36.3 90 16 116/64 99 Nasal Cannula 5 06/13/17 07:15 Room Air 06/13/17 05:50 36.7 80 16 123/73 (90) 98 Room Air 06/13/17 00:05 Room Air 06/12/17 23:07 36.7 68 16 132/86 (101) 99 Room Air Notes Mental Status: alert / awake / arousable, participated in evaluation Pt Amnestic to Procedure: Yes Nausea / Vomiting: adequately controlled Pain: adequately controlled Airway Patency, RR, SpO2: stable & adequate BP & HR: stable & adequate Hydration State: stable & adequate Anesthetic Complications: no major complications apparent
[2017-06-13] MEDS ORDERED: HYDR-5688 PO (13:42)
--- NOTE | 2017-06-13 13:45 | Discharge Instructions ---
Discharge Instructions Date of Service Jun 13, 2017. Admission Reason for Admission: Kidney Stone Discharge Discharge Diagnosis / Problem: Left ureteral stone s/p stent Discharge Goals Goal(s): Decrease discomfort, Improve function, Improve disease control, Diagnostic testing, Prevent Disease Progression Activity Recommendations Activity Limitations: as noted below Lifting Limitations: gradually increase as tolerated Exercise/Sports Limitations: rest today May Resume Sexual Activity: when tolerated Shower/Bathe: no limitations Driving or Machine Use: resume 1 day after discharge . Current Hospital Diet Patient's current hospital diet: Regular Diet Discharge Diet Recommended Diet: Regular Diet Procedures Procedures Performed: Cystoscopy; Left Ureteroscopy; Basket Stone Extraction; Retrograde Pyelography; Stent Placement Pending Studies Studies pending at discharge: no Medical Emergencies . Who to Call and When: Medical Emergencies: If at any time you feel your situation is an emergency, please call 911 immediately. . Non-Emergent Contact Non-Emergency issues call your: Primary Care Provider Call Non-Emergent contact if: you have a fever, your pain is worsening . . "Provider Documentation" section prepared by Yaz Tan . VTE Core Measure Inpt VTE Proph given/why not?: Shyann Moore, SCD's
--- NOTE | 2017-06-13 13:57 | Discharge Summary ---
Discharge Summary Date of Service Jun 13, 2017. Discharge Summary Admission Date: Jun 12, 2017 at 11:27 Discharge Date: Jun 13, 2017 Discharge Disposition: Home Principal Diagnosis: Left ureteral stone Immunizations: Have You Had Influenza Vaccine: N/A History of Tetanus Vaccine?: Yes Tetanus Immunization Date: Nov 13, 2008 History of Pneumococcal: No History of Hepatitis B Vaccine: No Procedures: Cystoscopy with stent placement Consultations: Urology Medication Reconciliation Changed Medications: Hydrocodone/Acetaminophen 5MG/325MG (Britt 5MG/325MG) Tab 1 TABLET PO Q12 PRN for Pain for 5 Days, #10 TAB (Changed from: Q4) PRN PAIN Discontinued Medications: Ondansetron Hcl (Zofran) 4 Mg Tab 4 MG PO Q4 PRN for Nausea, TAB Tamsulosin Hcl (Flomax) 0.4 Mg Cap 0.4 MG PO HS, CAP Referrals At Discharge Follow up Referrals: Urologist Referral - Within 2 Weeks with Morro Kay MD Discharge Exam Physical Exam: General Appearance: WD/WN, no apparent distress Eyes: normal inspection Respiratory/Chest: chest non-tender, lungs clear, normal breath sounds Cardiovascular: regular rate, rhythm, no edema Abdomen / GI: normal bowel sounds, non tender, soft, no organomegaly Extremities: no calf tenderness, no pedal edema Neurologic/Psychiatric: no motor/sensory deficits, alert, normal mood/affect , oriented x 3 Skin: no rash Lymphatic: no adenopathy Hospital Course Left sided ureteral stone. 7mm in size. Hydronephrosis. Pt has bounced back to ER and is frustrated. She is not interested in continuing to try to pass the stone. Pt was taken to OR for cystoscopy and Left sided ureteral stent placement. Pt tolerated the procedure. Pt is clinically stable to be discharge home to follow up with urology in 1 week. Total Time Spent: Greater than 30 minutes This includes examination of the patient, discharge planning, medication reconciliation, and communication with other providers. Discharge Instructions Please refer to the electronic Patient Visit Report (Discharge Instructions) for additional information. Follow-Up With PCP in 2 weeks Additional Copies To Suzette Townsend D.O.
== END 2017-06-13 15:04 | disposition home or self-care (01) | DRG 669 ==
LOC: C.EDB 07:09 → C.MSN 11:27 → ENRESERV 11:35
PROVIDERS: ADMIT Internal Medicine Sports Medicine; ATTEND Internal Medicine Sports Medicine
PROC: 0TC78ZZ Extirpation of Matter from Left Ureter, Via Natural or Artificial Opening Endoscopic (ICD-10-PCS; principal; 2017-06-13 08:00)
PROC: 0T778DZ Dilation of Left Ureter with Intraluminal Device, Via Natural or Artificial Opening Endoscopic (ICD-10-PCS; principal; 2017-06-13 08:00)
DX: N13.2 Hydronephrosis with renal and ureteral calculous obstruction (principal); I10 Essential (primary) hypertension; Z79.899 Other long term (current) drug therapy

== ENCOUNTER → 2017-08-20 | Outpatient (CLI) | payer OTHER ==
[~2017-08-20] MED LIST: HYDR-5688 PO
--- NOTE | 2017-08-20 10:37 | DIAGNOSTIC IMAGING REPORT ---
PELVIC COMPLETE NON OB HISTORY: 41 years-old Female MENOMETRORRHEA symptoms are acute in nature. History of prior . COMPARISON: None available TECHNIQUE: Multiple real-time sonographic images of the deep pelvic structures were obtained transabdominally and transvaginally assessing grayscale appearance, color and spectral flow. FINDINGS: TRANSABDOMINAL: Anteflexed uterus measures 12.6 x 6.9 x 9.0 cm. Multiple heterogeneous leiomyomas of the uterus. TRANSVAGINAL: Nabothian cyst of the cervix, 5 mm. The endometrium measures 5 mm and contains a mild amount of endometrial fluid. There are multiple leiomyomas throughout the uterus most which appear to be intramural in location, largest of which measures up to 4.1 x 3.8 x 3.2 cm within the mid uterus. There is a lobulated echogenic lesion noted within the endometrial cavity on image 54 which measures 9 x 9 x 7 mm without significant internal vascularity identified. The right ovary measures 5.4 x 3.3 x 3.2 cm demonstrates multiple follicles. Arterial inflow to the right ovary is documented. There is suggestion of small nonspecific calcifications about the right ovary. There are either some adjacent normal sized follicles or a single cyst with thin internal septation within the right ovary measuring up to 3.2 x 2.2 x 2.5 cm on image 71. Left ovary measures 3.7 x 2.8 x 1.6 cm and also contains multiple follicles and suggested punctate nonspecific calcifications. Multiple follicles are also seen on the left. Arterial inflow to the left ovary is documented. No significant free pelvic fluid. IMPRESSION: 1. Multiple leiomyomas of the uterus, most of which appear to be intramural in location. Additionally, there is an irregular lobulated echogenic structure within the endometrial canal measuring up to 9 mm suggesting endometrial polyp or alternatively a submucosal leiomyoma. This could be further evaluated with hysteroscopy. 2. Mild amount of fluid is noted within the endometrial canal. 3. No evidence of ovarian torsion. 4. There is either a single cyst with thin internal septation measuring up to 3.2 cm or adjacent normal sized follicles of the right ovary as above. The above report was generated using voice recognition software. It may contain grammatical, syntax or spelling errors. Electronically signed by: Naman Vásquez M.D. 08/20/2017 10:35 AM Dictated Date/Time: 08/20/2017 10:27 AM
== END | disposition home or self-care (01) ==
LOC: C.ULTR 08:41
PROVIDERS: ATTEND Family Medicine
DX: N92.1 Excessive and frequent menstruation with irregular cycle (principal); D25.1 Intramural leiomyoma of uterus; N85.8 Other specified noninflammatory disorders of uterus; R93.5 Abnormal findings on diagnostic imaging of other abdominal regions, including retroperitoneum